=== PATIENT | male | born 1975 ===

== ENCOUNTER 2025-09-07 14:31 | Outpatient (AMB) | payer OTHER, SELFPAY ==
--- NOTE | 2025-09-07 14:34 | MHC.OFFVIS ---
Intake Visit Reasons: Left Sided Weakness Vice President Required: Yes Vice President Services: Vice President Offered & Declined ( to translate) Allergies Penicillins Allergy (Unknown, Verified 09/07/25 14:37) Unknown Medication List - Last Reconciled 09/07/25 by Misty Jose CNP acetaminophen 1,000 mg PO Q8H PRN gabapentin 300 mg PO BID naproxen 500 mg PO BID nicotine 1 patch topical DAILY nicotine (polacrilex) 2 mg PO HPI Comments Details: 50-year-old man here for evaluation of left-sided weakness. In late 05/2025 or early 06/2025 while working at his physically demanding job, he had headache and experienced a sudden episode of dizziness where everything went black for few minutes, and he had to put his head down. Afterwards, he noticed some weakness to left leg, but no falls. Two weeks later in mid-06/2025 while at home, he had sudden onset of chest pain, headache, and elevated blood pressure (SBP 168 according to ). His noted left eye droop and abnormal speech. He was taken to [facility] and admitted for few days for left-sided facial weakness, and left arm and leg weakness. According to PCP referral note, hospital workup included CT scan, CTA head/neck, and MRI which were apparently negative. A Lyme disease test was also reportedly negative, however he was still treated with course of doxycycline. Hospital records were not available for review at this time. He completed about 3 months of PT which may have helped with walking some, but no significant improvement to left-weakness weakness. He continues to experience persistent numbness to left side, including to face and leg more than arm. He also gets some cramping in his leg. He has to eat and chew on right side of mouth. He also reports some ongoing blurred vision. No recent falls. Headaches began recently with these episodes. He denies history of diabetes. No antecedent illnesses, like cold or flu. [facility] Medical History (Updated 09/07/25 @ 15:10 by Misty Jose CNP) Hypertension Asthma Review of Systems Narrative - Constitutional: Denies recent cold or flu. - Neurological: Reports a recent onset of daily headaches, dizziness, and a blackout episode. - Reports persistent numbness on the left side of his body, including his face, arm, and leg, as well as cramping in his leg. - Denies recent falls. - Eyes: Reports blurred vision. - Cardiovascular: Reports a history of chest pain during the acute event. - Gastrointestinal: Denies dysphagia. - Musculoskeletal: Reports mild lower back pain. Physical Exam Const Other: General Appearance:? normal, in no acute distress. Extremities:? no edema. Psych:? alert, oriented, cognitive function intact, cooperative with exam. Neuro Other: Mental Status:?Normal attention, orientation, memory and affect.? Cranial Nerves:?Pupils are equal, round and reactive to light. External occular muscles are intact. Visual escobedo are full. Face is asymmetrical. Facial sensations are abnormal. Left facial weakness with ptosis noted. Shoulder shrugging is normal. Hearing to bedside conversation is normal. Motor Examination:?Generalized left-sided weakness. Deep tendon reflexes are 2+,?Plantars are flexor.? Sensory Exam:?Decreased sensation to L side of face and body. Coordination:?No ataxia,?no titubation.? Gait Exam: Mild hemiparetic gait. Cerebellar Signs:?[id number] is okay. Extrapyramidal System:?No tremor, rigidity with normal facial expressions.? Pronator Drift:?Not present.? Involuntary Movements:?No tremors seen.? Speech:?Normal.? Assessment & Plan Assessment & Plan (1) Left hemiparesis: Code(s): G81.94 - Hemiplegia, unspecified affecting left nondominant side Category: Medical Plan: Patient was informed and verbally consented to the use of an ambient scribe for clinic note documentation during this visit. Left hemiparesis of unknown etiology pending further workup. -Hospital records and CD of MRI were not available for review at this time. Differential includes a small, hypertension-related stroke, possibly a right basal ganglionic infarct, which would explain the patient's left-sided weakness and sensory symptoms. Given the patient's young age and only moderately elevated blood pressure at the time of the event, a thorough investigation is warranted. The most critical next step is to obtain and personally review the CD of the MRI scan from his hospitalization at [facility], as the provided report of a negative scan is inconsistent with the clinical findings. Patient and his were advised to get copy of CD of MRI and bring to next appointment. If review of the brain MRI confirms it is negative, the plan is to proceed with a lumbar puncture to evaluate for alternative causes. Follow up within 1 week for MRI review. Plan Exam, findings, and plan reviewed with Dr. Louise. Coding Level of Care Code New Pt Level 5 (97078) Diagnoses Left hemiparesis G81.94
--- OUTSIDE RECORDS SUMMARY | 2025-09-07 15:39 | XMS_ITS ---
Author Name [facility] Organization Unknown Care Team Organization Name Specialty Phone Email Start Date End Da te [facility] Karuna Alvarado Primary Care 07/16/2022 4
--- OUTSIDE RECORDS SUMMARY | 2025-09-07 15:39 | XMS_ITS | Clinical Summary ---
Author Organization [address] Address [address] [place] [phone] Phone Care Team Providers Care Investigator Welfare Name Role Phone Karuna Alvarado MD Primary Care Provider [phone] Allergies Active Allergy Reactions Criticality Noted Date Comments Penicillins 03/04/2022 Medications multivit-min/iron /folic acid/K (ADULTS MULTIVITAMIN ORAL) Take 1 tablet by mouth daily. Active acetaminophen (TYLENOL) 500 mg tablet Take 2 tablets (1,000 mg total) by mouth every 8 (eight) hours if needed for mild pain. 200 tablet 3 5 Active naproxen (NAPROSYN) 500 mg tablet Take 1 tablet (500 mg total) by mouth 2 (two) times a day with meals. 180 tablet 1 5 Active gabapentin (NEURONTIN) 300 mg capsule Take 1 capsule (300 mg total) by mouth 2 (two) times a day. 180 each 1 5 01/24/20 26 Active Active Problems Problem Noted Date Diagnosed Date Asthma 08/26/2022 Benign hypertension 08/26/2022 Chronic pain 08/26/2022 Class 1 obesity 08/26/2022 Insomnia 08/26/2022 Subclinical hyperthyroidism 08/26/2022 Overview (09/07/2024): recheck TSH/fT4 in January 2018 Encounters Date Type Department Care Team Description 08/29/2025 1:15 PM EST Treatment [facility] Occupational Therapy [address] [place] [phone] Walt Shelton, OT Left-sided weakness (Primary Dx) 08/29/2025 12:30 PM EST Treatment [facility] [address] [phone] Violeta Kim, PT Left-sided weakness (Primary Dx) 08/22/2025 9:45 AM EST Treatment [facility] Occupational [address] [phone] Walt Shelton, OT Left-sided weakness (Primary Dx) 08/17/2025 10:30 AM EST Treatment [address] [phone] Mitch Villanueva, HEALTH TYPE TECHNICIAN Left-sided weakness (Primary Dx) 08/17/2025 9:45 AM EST Treatment [facility] Occupational [address] [phone] Arianne Mcguire, OT Left-sided weakness (Primary Dx) 08/15/2025 10:30 AM EST Treatment [address] [phone] Mitch Villanueva, HEALTH TYPE TECHNICIAN Left-sided weakness (Primary Dx) 08/15/2025 9:45 AM EST Treatment [facility] Occupational [address] [phone] Walt Shelton, OT Left-sided weakness (Primary Dx) 08/12/2025 10:00 AM EST Treatment [address] [phone] Mitch Villanueva, HEALTH TYPE TECHNICIAN Left-sided weakness (Primary Dx) 08/12/2025 9:15 AM EST Treatment [facility] Occupational [address] [phone] Arianne Mcguire, OT Left-sided weakness (Primary Dx) 08/09/2025 9:45 AM EST Treatment [address] [phone] Mitch Villanueva, HEALTH TYPE TECHNICIAN Left-sided weakness (Primary Dx) 08/09/2025 9:00 AM EST Treatment [facility] Occupational [address] [phone] Walt Shelton, OT Left-sided weakness (Primary Dx) 08/03/2025 1:45 PM EST Treatment [facility] Occupational [address] [phone] Arianne Mcguire, OT Left-sided weakness (Primary Dx) 08/03/2025 1:00 PM EST Treatment [address] [phone] Mitch Villanueva, HEALTH TYPE TECHNICIAN Left-sided weakness (Primary Dx) 08/01/2025 3:00 PM EST Treatment [address] [phone] Mitch Villanueva, HEALTH TYPE TECHNICIAN Left-sided weakness (Primary Dx) 08/01/2025 2:15 PM EST Treatment [facility] Occupational [address] [phone] Arianne Mcguire, OT Left-sided weakness (Primary Dx) 2025 9:30 AM EST Treatment [facility] Occupational [address] [phone] Arianne Mcguire, OT Left-sided weakness (Primary Dx) 2025 8:45 AM EST Treatment [address] [phone] Mitch Villanueva, HEALTH TYPE TECHNICIAN Left-sided weakness (Primary Dx) 07/27/2025 12:45 PM EST Office Visit [address] [phone] Karuna Alvarado MD Left hemiparesis (CMS/HCC V24, CMS/HCC V28) (Primary Dx); Benign hypertension; Pain of left lower extremity 07/15/2025 1:00 PM EST Treatment [address] [place] [address] Mahendra Ayers, PT Left-sided weakness (Primary Dx) 07/15/2025 12:15 PM EST Treatment [facility] Occupational Therapy [address] [place] [phone] Arianne Mcguire, OT Left-sided weakness (Primary Dx) 07/12/2025 Telephone Adult Medicine [address] [phone] Karuna Alvarado MD 07/07/2025 2:45 PM EDT Evaluation [facility] Rehabilitation [address] [phone] Mahendra Ayers, PT Left-sided weakness 07/07/2025 11:00 AM EDT Evaluation [facility] Occupational Therapy [address] [place] [phone] Walt Shelton, OT Left-sided weakness (Primary Dx) 07/07/2025 Plan of Care Documentation [facility] Occupational Therapy [address] [phone] 07/01/2025 Telephone Adult [address] [phone] Karuna Alvarado MD 06/30/2025 1:30 PM EDT Office Visit Adult [address] [phone] Karuna Alvarado MD Left-sided weakness (Primary Dx); Moderate persistent asthma without complication; Benign hypertension 06/23/2025 Telephone Adult Medicine [address] [phone] Karuna Alvarado MD 06/20/2025 Nurse Triage Adult [address] [phone] Karuna Alvarado MD from Last 3 Months Immunizations Immunization Administration Dates Next Due COVID-19 (Moderna/Spikevax) 12yo and older 12/24 /2022 Influenza Quadravalent, MDCK , 0.5ml, preservative free (Flucelvax) 6mo and older 10/14/2023,08/26/2022,05/23/2021 Influenza Quadravalent, MDCK , 0.5ml, with preservative (Flucelvax) 6mo and older 07/08/2020 Influenza trivalent, MDCK, 0 .5mL, preservative free (Flucelvax) 6mo and older 06/30/2025 Pfizer SARS-CoV-2 COVID-19, mRNA, LNP-S, preservative free 09/18/2021 Pneumococcal conjugate 20 va lent (Prevnar 20, PCV 20) 2mo and older 09/17/2024 Tdap Tetanus diptheria acell ular pertussis (Boostrix; Adacel) 7yo and older 05/23/2021,08/14/2017 Surgical History Surgery Date Site/Laterality Comments APPENDECTOMY HERNIA REPAIR Bilateral inguinal Medical History Medical History Date Comments Asthma 08/26/2022 Benign hypertension 08/26/2022 Insomnia 08/26/2022 Subclinical hyperthyroidism 08/26/2022 rech reji TSH/fT4 in January 2018 Family History Medical History Relation Name Comments Diabetes Father CABG Mother Relation Name Status Comments Father Mother Social History Tobacco Use Types Packs/Day Years Used Date Smoking Tobacco: Every Day Cigarettes Smokeless Tobacco: Never Alcohol Use Standard Drinks/Week Comments Never 0 (1 standard drink = 0.6 oz pur e alcohol) Sex and Gender Information Value Date Recorded Sex Assigned at Male 07/04/2025 8:17 AM EDT Legal Sex Male 2:14 AM EST Gender Identity Male 07/04/2025 8:17 AM EDT Sexual Orientation Straight 07/04/2025 8: 17 AM EDT Last Filed Vital Signs Vital Sign Reading Time Taken Comments Blood Pressure 126/68 07/27/2025 12:42 PM EST Pulse 85 07/27/2025 12:42 PM EST Temperature 36.2 C (97.1 F) 07/27/2025 12:42 PM EST Respiratory Rate 16 07/27/2025 12:42 PM EST Oxygen Saturation 96% 07/27/2025 12:42 PM EST Inhaled Oxygen Concentration - - Weight 102 kg (224 lb 4.8 oz) 07/27/2025 12:42 P M EST Height 170.2 cm (5' 7 ) 07/27/2025 12:42 PM EST Body Mass Index 35.13 07/27/2025 12:42 PM EST Plan of Treatment Upcoming Encounters Date Type Department Care Team (Late st Contact Info) Description 09/07/2025 4:00 PM EST Office Visit Adult Medicine [facility] [address] [place], [place] [phone] Karuna Alvarado MD [address] [place], [place] Health Maintenance Due Date Last Done Comments Hepatitis B Vaccines (1 of 3 - 19+ 3-dose series) 1993 HIV Screening 08/18/2022 Hepatitis C Screening 08/18/2022 Social Influencers of Health Screening 08/18/2022 Hypertension/CHF/CAD Annual BMP Blood Test 10/24/2023 11/22/2021 RSV Immunization Adult Patients (1 - Risk 50-74 years 1-dose series) 2024 Zoster Vaccines (1 of 2) 2024 COVID-19 Vaccine ( season) 2025 09/07/2024, 08/31/2022, 09/18/2021, Additional history exists Cholesterol Screening (Lipid Panel) 11/22/2026 11/22/2021 DTaP,Tdap,and Td Vaccines (3 - Td or Tdap) 05/23/2031 05/23/2021, 08/14/2017 Colorectal Cancer Screening: Colonoscopy 10/09/2032 10/09/2022 Pneumococcal Vaccine: 50+ Years Completed 09/17/2024 Influenza Vaccine Completed 06/30/2025, , 08/26/2022, Additional history exists Depression Screening Completed 07/27/2025 HIB Vaccines Aged Out No longer eligi ble based on patient's age to complete this topic HPV Vaccines Aged Out No longer eligi ble based on patient's age to complete this topic Hepatitis A Vaccines Aged Out No long er eligible based on patient's age to complete this topic IPV Vaccines Aged Out No longer eligi ble based on patient's age to complete this topic MMR Vaccines Aged Out No longer eligi ble based on patient's age to complete this topic Meningococcal ACWY Vaccine Aged Out N o longer eligible based on patient's age to complete this topic Meningococcal B Vaccine Aged Out No l onger eligible based on patient's age to complete this topic RSV Immunization Patients Under 20 months Aged Out No longer eligible based on patient's age to complete this topic Varicella Vaccines Aged Out No longer eligible based on patient's age to complete this topic Goals Goal Patient Goal Type Associated Problems Recent Progress Patient-Stated? Author pt goals General On track( 025 10:50 AM EST) Yes José Miguel Medrano Note: To go back to work and be able to use my L arm PT LTGs General No Mahendra Ayers, PT Note: Pt will complete TUG without AD in under 20 seconds Pt will complete FGA without AD with score >19/30 for improved balance with functional mobility Pt will ascend/descend 12 steps with reciprocal stepping pattern and B rails mod independent Pt will report Left LE pain no greater than 2/10 with functional mobility Pt will be independent with HEP PT STGs General No Mahendra Ayers, PT Note: Pt will complete MMT of left hip with left thigh pain no greater than 4/10 Pt will will complete TUG with LAD in under 30 seconds Pt will complete FGA with LAD Pt will ambulate with LAD x200 ft with LLE pain no greater than 4/10 Procedures Procedure Name Priority Date/Time Associated Diagnosis Comments COLONOSCOPY Routine 10/09/2022 ANNUAL BMP BLOOD TEST Routine 11/22/2021 LIPID PANEL Routine 11/22/2021 from Last 3 Months or Most Recently Relevant to Health Maintenance Results * Colonoscopy (10/09/2022) Colonoscopy Abstracted, no interpretation Anatomical Region Laterality Modality Other Historical Provider HEALTH MAINTENANCE Final Result * Annual BMP Blood Test (11/22/2021) Annual BMP Blood Test Abstracted Historical Provider HEALTH MAINTENANCE Final Result * (ABNORMAL) Lipid panel (11/22/2021) LDL/HDL Ratio 5(A) 0 - 4 Triglycerides 118 0 - 150 mg/dL Cholesterol 165 0 - 200 mg/dL HDL 33(A) >=40 mg/dL LDL Cholesterol 109(A) 0 - 100 mg/dL Blood Venous blood specimen / Unknown us Historical Provider LAB BLOOD ORDERABLES Nyla l Result from Last 3 Months or Most Recently Relevant to Health Maintenance Insurance [facility] [employer] Care Teams Investigator Welfare Relationship Specialty Start Date End Date Karuna Alvarado MD [address] [place] [phone] PCP - General Internal Medicine 03/05/21
== END 2025-09-07 15:14 | disposition home or self-care (01) ==
LOC: HO.HSM 14:31
PROVIDERS: PCP Internal Medicine; Visit Provider Registered Nurse
DX: G81.94 Hemiplegia, unspecified affecting left nondominant side (principal)
CPT/HCPCS: 99205